=== PATIENT | female | born 1965 | race Caucasian/White ===

== ENCOUNTER 2018-05-28 12:44 | Outpatient (CLI) | payer OTHER ==
[~2018-05-28] VITALS: Ht 165.1 cm; Wt 132.4 kg
[2018-05-28 13:15] VITALS: BP 158/74
[2018-05-28] MEDS ORDERED: HUMIRA40 MG/0.2 SUBQ (16:37)
[2018-05-28] MEDS ORDERED: PROBIOTIC1 EAC2 PO (16:37)
[2018-05-28] MEDS ORDERED: GABAPENTIN800 MG ORAL (16:37)
[2018-05-28] MEDS ORDERED: HYDROCHLOROTHIA25 MG ORAL (16:37)
[2018-05-28] MEDS ORDERED: CYMBALTA30 MG ORAL (16:37)
[2018-05-28] MEDS ORDERED: METFORMIN HCL500 M1 ORAL (16:37)
[2018-05-28] MEDS ORDERED: DICLOFENAC SODI75 MG ORAL (16:37)
[2018-05-28] MEDS ORDERED: HYDROXYCHLOROQ200 M1 PO (16:37)
[2018-05-28] MEDS ORDERED: ASPIRIN EC81 MG ORAL (16:37)
--- NOTE | 2018-05-28 21:30 | Consultation ---
DATE OF CONSULTATION: 05/28/2018 CONSULTING PHYSICIAN: Georges Hill M.D. CHIEF COMPLAINT: Evaluation for possible endoscopy prior to the revision of bariatric surgery. HISTORY OF PRESENT ILLNESS: This is a 53-year-old female with numerous medical problems including obesity, history of gastric bariatric surgery in the past. She is going for revision, history of fatty liver, diabetes, rheumatoid arthritis. Basically, the patient is having complaint of chronic GERD, chronic nausea, bloating, gas. PAST MEDICAL HISTORY: 1. Fatty liver. 2. Rheumatoid arthritis. 3. Kidney stones. 4. Polymyalgia. 5. Diabetes. 6. Asthma. 7. Depression. 8. Sleep apnea. 9. Morbid obesity. PAST SURGICAL HISTORY: 1. Cholecystectomy. 2. Gastric stapling. MEDICATIONS: Please see medication reconciliation list. FAMILY HISTORY: No family history of GI malignancies. SOCIAL HISTORY: The patient denies any alcohol usage. Smokes, but she actually quit smoking. Denies intravenous drug usage. ALLERGIES: To Enbrel. PHYSICAL EXAMINATION: VITAL SIGNS: Temperature 97.6, blood pressure is 158/74, pulse 76, respirations 20. HEENT: Normocephalic, atraumatic. No scleral icterus. NECK: Supple. No obvious evidence of lymphadenopathy. CARDIOVASCULAR: Regular rhythm. Plus S1 and S2. No obvious murmur. LUNGS: Clear to auscultation bilaterally. ABDOMEN: Soft . No rebound. No guarding. No peritoneal sign. EXTREMITIES: No cyanosis. No clubbing. No edema. ASSESSMENT AND PLAN: 1. Morbid obesity, history of gastric stapling going for revision. Needs an endoscopy prior to procedure per Dr. Valencia's request. Plan to schedule endoscopy after the insurance authorization. 2. Chronic bloating, gas, abdominal distention, loose stools. This has a combination of signs and symptoms of lactose intolerance, but the patient says she has a baseline diarrhea and when she takes a new product, it becomes worse, so she might have a combination of 2 things, 1 was the small bacterial overgrowth causing lot of gas and bloating, the other one lactose intolerance. The patient was to stay away from any lactose food. She was given a prescription for Xifaxan 550 t.i.d. for 14 days for possible SIBO. I want to thank, Dr. Valencia, for this kind referral. Georges Hill M.D. DR: MOY JOB#: [id number] CC: Brent Valencia M.D.
== END 2018-05-28 14:44 | disposition home or self-care (01) ==
LOC: PAN 12:44
DX: E66.01 Morbid (severe) obesity due to excess calories (principal); R14.0 Abdominal distension (gaseous); K21.9 Gastro-esophageal reflux disease without esophagitis; Z98.84 Bariatric surgery status; E11.9 Type 2 diabetes mellitus without complications; M06.9 Rheumatoid arthritis, unspecified; Z87.442 Personal history of urinary calculi; F32.9 Major depressive disorder, single episode, unspecified; G47.30 Sleep apnea, unspecified; Z90.49 Acquired absence of other specified parts of digestive tract; Z68.42 Body mass index [BMI] 45.0-49.9, adult
CPT/HCPCS: 99202